=== PATIENT | male | born 1975 | race Caucasian/White ===

== ENCOUNTER 2018-06-02 14:33 | Outpatient (CLI) | payer OTHER ==
--- NOTE | 2018-06-02 14:54 | XRAY Report ---
Procedure Date: 06/02/2018 Accession Number: [id number] / [id number] Procedure: XR - Finger(s) LT CPT Code: FULL RESULT: EXAM: Finger(s) LT Left first digit radiography CLINICAL HISTORY: LT BASE OF THUMB PAIN COMPARISON: None. TECHNIQUE: 3 views. FINDINGS: Bones: Normal. No fracture or bone lesion. Joints: Mild osteoarthritis of the first carpometacarpal joint. Soft Tissues: Normal. No soft tissue swelling. IMPRESSION: Mild osteoarthritis. No evidence of fracture. RADIA
== END 2018-06-02 14:34 | disposition home or self-care (01) ==
LOC: DI 14:33
PROVIDERS: ATTEND Internal Medicine
DX: M18.12 Unilateral primary osteoarthritis of first carpometacarpal joint, left hand (principal)
CPT/HCPCS: 73140

== ENCOUNTER 2019-10-11 00:40 | Emergency (ER) | payer MEDICAID ==
[2019-10-11] MEDS ORDERED: DEXAMETHASONE 10 MG/ML VIAL IVP STA ×2 (00:45→00:51)
[2019-10-11] MEDS ORDERED: EPINEPHrine 1 MG/ML AMP IM STA (00:51)
[2019-10-11] MEDS ORDERED: diphenhydrAMINE INJ 50 MG/ML VIAL IVP STA (00:51)
[2019-10-11 01:04] LABS: BASOPHILS # (AUTO) 0.1 10^3/uL (0.0-0.1); BASOPHILS % (AUTO) 0.9 %; EOSINOPHILS # (AUTO) 0.3 10^3/uL (0.0-0.7); EOSINOPHILS % (AUTO) 4.9 %; HGB - HEMOGLOBIN 14.4 g/dL (14.0-18.0); LYMPHOCYTES # (AUTO) 2.7 10^3/uL (1.5-3.5); LYMPHOCYTES % (AUTO) 40.5 %; MEAN CORPUSCULAR HGB CONC 33.3 g/dL (32.0-36.0); MEAN CORPUSCULAR VOLUME 93.1 fL (80.0-94.0); MEAN PLATELET VOLUME 9.9 fL (7.4-11.4); MONOCYTES # (AUTO) 0.5 10^3/uL (0.0-1.0); MONOCYTES % (AUTO) 7.4 %; NEUTROPHILS # (AUTO) 3.1 10^3/uL (1.5-6.6); PLT - PLATELET COUNT 229 10^3/uL (130-450); RED BLOOD COUNT 4.64 10^6/uL (4.70-6.10); RED CELL DISTRIBUTION WIDTH 12.8 % (12.0-15.0); WHITE BLOOD COUNT 6.7 x10^3/uL (4.8-10.8)
--- NOTE | 2019-10-11 01:14 | ED Physician Documentation ---
History of Present Illness - Stated complaint Stated Complaint: HARLAN/CANT SWALLOW - Chief complaint Chief Complaint: Allergic Rx - History obtained from History obtained from: Patient - History of Present Illness Timing: Today - Additonal information Additional information: Previously well 44-year-old male with no particular past medical history was laying on the floor in front of the fire when he fell asleep and he awoke finding that he had a dry throat. He went to drinks some water and felt that he was choking. He looked in the mirror to find that his uvula was quite swollen. He denies any current illness he denies any use of BALTA inhibitor or any medications. Family with patient indicates that there is a feral cat that is usually outside and today the cat was inside. In the room that the patient fell asleep in. The patient does not have allergy to dogs but he does not usually spend much time with a cat and the cat is not usually inside the house. He denies any shortness of breath specifically but does have a feeling of choking and can tell that his uvula is swollen. Review of Systems Constitutional: denies: Fever Eyes: denies: Decreased vision Ears: denies: Ear pain Nose: denies: Rhinorrhea / runny nose, Congestion Throat: reports: Sore throat Cardiac: denies: Chest pain / pressure, Palpitations Respiratory: denies: Dyspnea, Cough GI: denies: Abdominal Pain, Nausea, Vomiting : denies: Dysuria, Frequency PD PAST MEDICAL HISTORY - Past Medical History Past Medical History: No Cardiovascular: None Respiratory: None Neuro: None Endocrine/Autoimmune: None GI: None : None HEENT: None Psych: None Musculoskeletal: None Derm: None - Past Surgical History Past Surgical History: No - Present Medications Home Medications: Ambulatory Orders Medication Instructions Recorded Confirmed dexAMETHasone [Decadron] 4 mg PO DAILY #5 tablet 10/11/19 - Allergies Allergies/Adverse Reactions: Allergies Allergy/AdvReac Type Severity Reaction Status Date / Time No Known Drug Allergies Allergy Verified 10/11/19 00:48 - Social History Does the pt smoke?: No Smoking Status: Former smoker Does the pt drink ETOH?: Yes ETOH Use: Beer Does the pt have substance abuse?: Yes Substance Use and Type: Marijuana - Immunizations Immunizations are current?: Yes - POLST Patient has POLST: No PD ED PE NORMAL - Vitals Vital signs reviewed: Yes (hypertensive) - General General: Alert and oriented X 3, Well developed/nourished, Other (The patient is leaning foreward slightly and has a low nasal quality to his voice. ) - HEENT HEENT: Atraumatic, PERRL, EOMI, Ears normal, Moist mucous membranes, Other (The uvual is swollen as is the posterior pharynx it is wide and long. There is no exudate. 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, No motor deficit, No sensory deficit Eye Opening: Spontaneous Motor: Obeys Commands Verbal: Oriented GCS Score: 15 - Psych Psych: Normal mood, Normal affect Results - Vitals Vitals: Vital Signs - 24 hr 10/11/19 10/11/19 10/11/19 00:44 01:17 01:30 Temperature 36.5 C Heart Rate 95 85 80 Respiratory 15 16 12 Rate Blood Pressure 160/114 H 138/93 H 131/74 H O2 Saturation 98 98 97 10/11/19 10/11/19 02:00 02:30 Temperature 36.6 C Heart Rate 82 80 Respiratory 21 19 Rate Blood Pressure 129/86 H 127/83 H O2 Saturation 96 97 Oxygen O2 Source Room air - Labs Labs: Laboratory Tests 10/11/19 10/11/19 00:55 00:55 WBC 6.7 RBC 4.64 L Hgb 14.4 Hct 43.2 MCV 93.1 MCH 31.0 MCHC 33.3 RDW 12.8 Plt Count 229 MPV 9.9 Neut # (Auto) 3.1 Lymph # (Auto) 2.7 [place] # (Auto) 0.5 Eos # (Auto) 0.3 Baso # (Auto) 0.1 Absolute Nucleated RBC 0.00 Nucleated RBC % 0.0 Sodium 140 Potassium 3.9 Chloride 107 Carbon Dioxide 23 Anion Gap 10.0 BUN 12 Creatinine 0.7 Estimated GFR (MDRD) 123 Glucose 112 H Calcium 8.9 Total Bilirubin 0.6 AST 22 ALT 26 Alkaline Phosphatase 61 Total Protein 7.5 Albumin 4.1 Globulin 3.4 Albumin/Globulin Ratio 1.2 Lipase 26 PD MEDICAL DECISION MAKING - ED course Complexity details: re-evaluated patient, considered differential, d/w patient, d/w family ED course: 44-year-old male with a swollen uvula that he is nearly choking on presents to the emergency department with a feeling he may have trouble with his airway. He is immediately treated with intravenous dexamethasone and Benadryl as well as IM epinephrine. He has rapid improvement in symptoms and persistent improvement. He is observed in the emergency department and discharged. I suspect his underlying etiology is exposure to the cat. Departure - Departure Disposition: 01 Home, Self Care Clinical Impression: Allergic pharyngitis Condition: Stable Instructions: ED Angioedema Follow-Up: [facility] [Provider Group] Prescriptions: dexAMETHasone [Decadron] 4 mg PO DAILY #5 tablet Comments: Today it appears the swelling in the back your throat is related to the cat that has come into your house. Remove the cat from your house and take some Benadryl or other antihistamine for the next 2 days. In addition we have prescribed some dexamethasone to be taken daily for 5 days. Discharge Date/Time: 10/11/19 02:58
[2019-10-11 01:16] LABS: ALBUMIN 4.1 g/dL (3.2-5.5); ALBUMIN/GLOBULIN RATIO 1.2 (1.0-2.2); BILIRUBIN,TOTAL 0.6 mg/dL (0.2-1.0); CALCIUM 8.9 mg/dL (8.5-10.3); CREATININE 0.7 mg/dL (0.6-1.2); TOTAL PROTEIN 7.5 g/dL (6.7-8.2)
[2019-10-11 02:54] VITALS: BP 127/83
== END 2019-10-11 02:58 | disposition home or self-care (01) ==
LOC: ED 00:40
DX: J02.9 Acute pharyngitis, unspecified (principal); T78.40XA Allergy, unspecified, initial encounter; X58.XXXA Exposure to other specified factors, initial encounter; Z87.891 Personal history of nicotine dependence
CPT/HCPCS: 36415; 80053; 83690; 85025; 96372; 96374; 99283; 99284; J1200

== ENCOUNTER 2021-08-30 13:03 | Emergency (ER) | payer SELFPAY ==
[2021-08-30 13:12] VITALS: BP 155/88
[2021-08-30] MEDS ORDERED: TETANUS/DIPHTHERIA/PERTUSSIS 0.5 ML SYRINGE IM ONE (13:39)
--- NOTE | 2021-08-30 13:41 | ED Physician Documentation ---
PD HPI LOWER EXT INJURY - Stated complaint Stated Complaint: RT LEG PX - Chief complaint Chief Complaint: Ext Problem - History obtained from History obtained from: Patient - Additional information Additional information: Patient comes emergency department chief complaint of puncture wound to right thigh and ongoing pain. Patient states that 5 days ago he had a couple of large nails in his pocket when a ladder struck him and drove the nails deep into his proximal medial thigh. He states that he felt that the nails probably went all the way and but does not know if this was obliquely or not. Patient states he did not seek any medical attention and has been washing the wounds daily ever since. He has 2 puncture wounds that are set close together, but since the injury, he has noticed a spreading appearance of contusion that has been tracking both anteriorly and posteriorly from the wound as well as inferiorly. No erythema or induration. No fluctuance or drainage. The patient denies fe vers or chills. He states that he has had some stiffness and soreness, which she has been managing with ibuprofen. Patient states he mainly came in because his friend was concerned about possible infection. The patient does note that it has been at least 10 years since his last tetanus shot. No other complaints at this time. Review of Systems Ten Systems: 10 systems reviewed and negative Constitutional: reports: Reviewed and negative Eyes: reports: Reviewed and negative Ears: reports: Reviewed and negative Nose: reports: Reviewed and negative Throat: reports: Reviewed and negative Cardiac: reports: Reviewed and negative Respiratory: reports: Reviewed and negative GI: reports: Reviewed and negative : reports: Reviewed and negative Skin: reports: Reviewed and negative Musculoskeletal: reports: Extremity pain Neurologic: reports: Reviewed and negative Psychiatric: reports: Reviewed and negative Endocrine: reports: Reviewed and negative Immunocompromised: reports: Reviewed and negative PD PAST MEDICAL HISTORY - Past Medical History Cardiovascular: None Respiratory: None Neuro: None Endocrine/Autoimmune: None GI: None : None HEENT: None Psych: None Musculoskeletal: None Derm: None - Past Surgical History Past Surgical History: No - Present Medications Home Medications: Ambulatory Orders Medication Instructions Recorded Confirmed dexAMETHasone [Decadron] 4 mg PO DAILY #5 tablet 10/11/19 - Allergies Allergies/Adverse Reactions: Allergies Allergy/AdvReac Type Severity Reaction Status Date / Time No Known Drug Allergies Allergy Verified 08/30/21 13:12 - Social History Does the pt smoke?: No Smoking Status: Never smoker Does the pt drink ETOH?: Yes Does the pt have substance abuse?: Yes - Immunizations Immunizations are current?: Yes - POLST Patient has POLST: No PD ED PE NORMAL - Vitals Vital signs reviewed: Yes - General General: Alert and oriented X 3, No acute distress, Well developed/nourished - HEENT HEENT: Atraumatic, PERRL, EOMI, Moist mucous membranes - Neck Neck: Supple, no meningeal sign - Respiratory Respiratory: No respiratory distress - Derm Derm: Warm and dry, Other (2 puncture wounds set approximately 3 mm apart patient's proximal most anteromedial thigh on the right. Surrounding tissue soft. Large area of old contusion tracking anteriorly and posteriorly as well as especially inferiorly, but minimally superiorly from the wounds. No drainage. No fluctuance.) - Extremities Extremities: No deformity, No edema, No calf tenderness / cord - Neuro Neuro: Alert and oriented X 3 - Psych Psych: Normal mood, Normal affect Results - Vitals Vitals: Vital Signs - 24 hr 08/30/21 13:06 Temperature 36.9 C Heart Rate 75 Respiratory 16 Rate Blood Pressure 155/88 H O2 Saturation 99 Oxygen O2 Source Room air PD MEDICAL DECISION MAKING - ED course Complexity details: considered differential, d/w patient ED course: I discussed with the patient that his wound does not appear infected and the tracking of the contusion is entirely normal. There is no erythema or induration, nor is there fluctuance or any superior tracking, and as such, I do not feel the patient needs antibiotics. I have updated his tetanus in the emergency department today. We discussed home management of the symptoms, as well as the usual indications for return. Departure - Departure Disposition: 01 Home, Self Care Clinical Impression: Puncture wound Contusion Qualifiers: Encounter type: initial encounter Contusion area: thigh Laterality: right Qualified Code(s): S70.11XA - Contusion of right thigh, initial encounter Condition: Stable Instructions: ED Wound Puncture General Comments: Your leg findings are normal for a wound that goes into the muscle. It is very common for bruising like to track In the direction of gravity, whether that is further down the leg, or toward the front or back of the leg, depending on periods of extended position. The body will ultimately reabsorb the blood and there is no evidence of new or ongoing bleeding under the skin. There is also no evidence of a deeper infection, as you are tissues are soft and uniform in texture. You may continue to use ibuprofen and/or Tylenol, and you may also apply ice or heat packs to help with the discomfort. If you develop a deep redness and firmness that is spreading progressively away from the wound, or notice streaks going up from the wound, you should have it rechecked immediately. Otherwise, this will go away on its own.
== END 2021-08-30 13:52 | disposition home or self-care (01) ==
LOC: ED 13:03
DX: S71.131A Puncture wound without foreign body, right thigh, initial encounter (principal); S70.11XA Contusion of right thigh, initial encounter; W45.0XXA Nail entering through skin, initial encounter; W20.8XXA Other cause of strike by thrown, projected or falling object, initial encounter; Z23 Encounter for immunization
CPT/HCPCS: 90471; 99282; 99283

== ENCOUNTER 2021-09-13 18:32 | Emergency (ER) | payer SELFPAY ==
[2021-09-13] MEDS ORDERED: LOPERAMIDE 2 MG CAPSULE PO STA (19:04)
[2021-09-13] MEDS ORDERED: SODIUM CHLORIDE 0.9% 1,000 ML IV STA (19:04)
[2021-09-13] MEDS ORDERED: ONDANSETRON 4 MG/2 ML VIAL IVP STA (19:04)
[2021-09-13] MEDS ORDERED: KETOROLAC 30 MG/ML VIAL IVP STA (19:04)
--- NOTE | 2021-09-13 19:05 | ED Physician Documentation ---
PD HPI NVD - Stated complaint Stated Complaint: BODYACHES,DIARREHA,NAUSEA - Chief complaint Chief Complaint: Abd Pain - History obtained from History obtained from: Patient - Additonal information Additional information: 46-year-old gentleman, otherwise healthy but unvaccinated for Covid presents with about a 36-hour illness marked by profuse diarrhea, body aches, fever to 102 at home, headache and nausea without vomiting. He denies abdominal pain. No known sick contacts, recent travel, recent antibiotics, or camping. Review of Systems Ten Systems: 10 systems reviewed and negative Constitutional: reports: Fever, Chills, Myalgias, Fatigue Nose: denies: Rhinorrhea / runny nose Cardiac: denies: Chest pain / pressure, Palpitations Respiratory: denies: Dyspnea, Cough GI: reports: Nausea, Diarrhea. denies: Abdominal Pain, Vomiting, Hematemesis, Bloody / black stool PD PAST MEDICAL HISTORY - Past Medical History Cardiovascular: None Respiratory: None Neuro: None Endocrine/Autoimmune: None GI: None : None HEENT: None Psych: None Musculoskeletal: None Derm: None - Past Surgical History Past Surgical History: No - Present Medications Home Medications: Ambulatory Orders Medication Instructions Recorded Confirmed Dicyclomine [Bentyl] 1 - 2 tab PO QID PRN #20 cap 09/13/21 Loperamide [Imodium] 2 mg PO QID PRN #10 cap 09/13/21 Ondansetron Odt [Zofran] 4 mg TL Q6H PRN #10 tablet 09/13/21 - Allergies Allergies/Adverse Reactions: Allergies Allergy/AdvReac Type Severity Reaction Status Date / Time No Known Drug Allergies Allergy Verified 09/13/21 18:50 - Social History Does the pt smoke?: No Smoking Status: Never smoker Does the pt drink ETOH?: Yes Does the pt have substance abuse?: Yes - Immunizations Immunizations are current?: Yes - POLST Patient has POLST: No PD ED PE NORMAL - Vitals Vital signs reviewed: Yes - General General: Alert and oriented X 3, No acute distress - Cardiac Cardiac: RRR, No murmur - Respiratory Respiratory: No respiratory distress, Clear bilaterally - Abdomen Abdomen: Soft, Non tender, Other (hyperactive bowel tones) - Back Back: No CVA TTP, No spinal TTP - Derm Derm: Normal color, Warm and dry - Extremities Extremities: No edema, No calf tenderness / cord - Neuro Neuro: Alert and oriented X 3, Normal speech Results - Vitals Vitals: Vital Signs - 24 hr 09/13/21 18:43 Temperature 35.7 C L Heart Rate 99 Respiratory 16 Rate Blood Pressure 126/87 H O2 Saturation 96 Oxygen O2 Source Room air - Labs Labs: Laboratory Tests 09/13/21 09/13/21 09/13/21 18:33 18:33 19:20 WBC 11.1 H RBC 4.57 L Hgb 14.5 Hct 42.2 MCV 92.3 MCH 31.7 H MCHC 34.4 RDW 12.7 Plt Count 172 MPV 9.8 Neut # (Auto) 9.4 H Lymph # (Auto) 0.7 L [place] # (Auto) 0.9 Eos # (Auto) 0.0 Baso # (Auto) 0.1 Absolute Nucleated RBC 0.00 Nucleated RBC % 0.0 Sodium 133 L Potassium 3.6 Chloride 99 L Carbon Dioxide 23 Anion Gap 11.0 BUN 16 Creatinine 1.1 Estimated GFR (MDRD) 72 L Glucose 119 H Calcium 9.0 Nasal Adenovirus (PCR) NOT DETECTED Nasal B. parapertussis DNA (PCR) NOT DETECTED Nasal Coronavir 229E PCR NOT DETECTED Nasal Coronavir HKU1 PCR NOT DETECTED Nasal Coronavir NL63 PCR NOT DETECTED Nasal Coronavir OC43 PCR NOT DETECTED Nasal Enterovir/Rhinovir PCR NOT DETECTED Nasal Influenza B PCR NOT DETECTED Nasal Influenza A PCR NOT DETECTED Nasal Parainfluen 1 PCR NOT DETECTED Nasal Parainfluen 2 PCR NOT DETECTED Nasal Parainfluen 3 PCR NOT DETECTED Nasal Parainfluen 4 PCR NOT DETECTED Nasal RSV (PCR) NOT DETECTED Nasal B.pertussis DNA PCR NOT DETECTED Nasal C.pneumoniae (PCR) NOT DETECTED Arsenio Human Metapneumo PCR NOT DETECTED Nasal M.pneumoniae (PCR) NOT DETECTED Nasal SARS-CoV-2 (PCR) NOT DETECTED PD MEDICAL DECISION MAKING - ED course ED course: 46-year-old gentleman with stomach cramps, nausea and diarrhea. Overall sounding like a viral syndrome. Benign exam. Labs relatively unremarkable. Covid negative. Feeling better after IV fluids and meds here. Close watchful waiting and return precautions were discussed. Departure - Departure Disposition: 01 Home, Self Care Clinical Impression: Viral syndrome Diarrhea Qualifiers: Diarrhea type: presumed infectious Qualified Code(s): R19.7 - Diarrhea, unspecified Condition: Good Record reviewed to determine appropriate education?: Yes Instructions: ED Diarrhea Viral Prescriptions: Dicyclomine [Bentyl] 1 - 2 tab PO QID PRN #20 cap PRN Reason: Abdominal Pain Loperamide [Imodium] 2 mg PO QID PRN #10 cap PRN Reason: Diarrhea Ondansetron Odt [Zofran] 4 mg TL Q6H PRN #10 tablet PRN Reason: Nausea / Vomiting Comments: Return if not better in 24 hours, anytime for new or worsening symptoms. Note for your records that you did test negative for Covid tonight. Forms: Activity restrictions
[2021-09-13 19:11] LABS: BASOPHILS # (AUTO) 0.1 10^3/uL (0.0-0.1); BASOPHILS % (AUTO) 0.5 %; EOSINOPHILS % (AUTO) 0.1 %; HCT - HEMATOCRIT 42.2 % (42.0-52.0); HGB - HEMOGLOBIN 14.5 g/dL (14.0-18.0); LYMPHOCYTES # (AUTO) 0.7 10^3/uL (1.5-3.5); LYMPHOCYTES % (AUTO) 6.3 %; MEAN CORPUSCULAR HEMOGLOBIN 31.7 pg (27.0-31.0); MEAN CORPUSCULAR HGB CONC 34.4 g/dL (32.0-36.0); MEAN CORPUSCULAR VOLUME 92.3 fL (80.0-94.0); MEAN PLATELET VOLUME 9.8 fL (7.4-11.4); MONOCYTES # (AUTO) 0.9 10^3/uL (0.0-1.0); MONOCYTES % (AUTO) 7.9 %; NEUTROPHILS # (AUTO) 9.4 10^3/uL (1.5-6.6); NEUTROPHILS % (AUTO) 84.7 %; PLT - PLATELET COUNT 172 10^3/uL (130-450); RED BLOOD COUNT 4.57 10^6/uL (4.70-6.10); RED CELL DISTRIBUTION WIDTH 12.7 % (12.0-15.0); WHITE BLOOD COUNT 11.1 x10^3/uL (4.8-10.8)
[2021-09-13 19:14] LABS: CREATININE 1.1 mg/dL (0.6-1.2); POTASSIUM 3.6 mmol/L (3.5-5.0)
[2021-09-13 20:24] LABS: B. PARAPERTUSSIS- RESP PCR PAN NOT DETECTED; B. PERTUSSIS- RESP PCR PANEL NOT DETECTED; C. PNEUMONIAE- RESP PCR PANEL NOT DETECTED; CORONAVIRUS 229E-RESP PCR NOT DETECTED; CORONAVIRUS HKU1-RESP PCR NOT DETECTED; CORONAVIRUS NL63-RESP PCR NOT DETECTED; CORONAVIRUS OC43-RESP PCR NOT DETECTED; HUMAN METAPNEUMOVIRUS NOT DETECTED; INFLUENZA A- RESP PCR PANEL NOT DETECTED; INFLUENZA B - RESP PCR PANEL NOT DETECTED; M. PNEUMONIAE- RESP PCR PANEL NOT DETECTED; PARAINFLUENZA VIRUS 1 NOT DETECTED; PARAINFLUENZA VIRUS 2 NOT DETECTED; PARAINFLUENZA VIRUS 3 NOT DETECTED; PARAINFLUENZA VIRUS 4 NOT DETECTED; RHINOVIRUS/ENTEROVIRUS NOT DETECTED; RSV- RESP PCR PANEL NOT DETECTED; SARS-CoV-2 -RESP PCR PANEL NOT DETECTED
[2021-09-13 20:36] VITALS: BP 127/83
== END 2021-09-13 20:41 | disposition home or self-care (01) ==
LOC: ED 18:32
DX: B34.9 Viral infection, unspecified (principal); Z20.822 Contact with and (suspected) exposure to COVID-19
CPT/HCPCS: 0202U; 36415; 80048; 85025; 96374; 96375; 99283; 99284; A9270

== ENCOUNTER 2023-01-05 21:30 | Outpatient (CLI) | payer SELFPAY | END 2023-01-05 21:31 | disposition short-term general hospital (02) | LOC: EMS 21:30 | DX: S06.9X9A Unspecified intracranial injury with loss of consciousness of unspecified duration, initial encounter (principal); S00.83XA Contusion of other part of head, initial encounter; W04.XXXA Fall while being carried or supported by other persons, initial encounter; Y92.009 Unspecified place in unspecified non-institutional (private) residence as the place of occurrence of the external cause; Z72.89 Other problems related to lifestyle | CPT/HCPCS: A0425; A0427 ==